=== PATIENT | male | born 1985 | race Hispanic/Latino ===

== ENCOUNTER 2017-11-21 12:30 | Day surgery (SDC) | payer SELFPAY ==
[~2017-11-21 12:30] MED LIST: Dexamethasone 20 MG/5 ML VIAL ONE; Ketorolac Tromethamine 30 MG/ML VIAL ONE; Lidocaine 1% PF 5 ML VIAL ONE; Ondansetron HCl/PF 4 MG/2 ML Vial ONE; Propofol 200 MG/20 ML VIAL ONE
[2017-11-21 12:50] LABS: #Basophils 0.1 thou/uL (0.0-0.2); #Eosinphils 0.2 thou/uL (0.0-0.7); #Lymphocytes 2.4 thou/uL (1.20-3.40); #Monocytes 1.1 thou/uL (0.11-0.59); #Neutrophils 11.6 thou/uL (1.40-6.50); %Basophils 0.6 % (0.0-1.0); %Eosinophils 1.5 % (0.0-10.0); %Lymphocytes 15.6 % (21.0-51.0); %Monocytes 6.8 % (0.0-10.0); %Neutrophils 75.6 % (42.0-75.0); Hemoglobin 17.2 g/dL (14.0-18.0); Mean Corpuscular Hemoglobin 29.4 pg (27.0-31.0); Mean Corpuscular Volume 91.9 fl (80.0-94.0); Mean Platelet Volume 7.8 fL (7.4-10.4); Platelet Count 369 thou/uL (130-400); RBC Distribution Width 12.5 % (11.5-14.5); Red Blood Cell (RBC) Count 5.84 mill/uL (4.70-6.10); White Blood Cell (WBC) Count 15.4 thou/uL (4.8-10.8)
[2017-11-21] MEDS ORDERED: Ondansetron HCl/PF 4 MG/2 ML Vial ONE (13:06)
[2017-11-21 13:13] LABS: ALT (SGPT) 40 U/L (8-55); AST (SGOT) 18 U/L (5-34); Albumin 4.1 g/dL (3.5-5.0); Alkaline Phosphatase 82 U/L (40-150); Anion Gap 15 mmol/L (10-20); BUN (Urea Nitrogen) 7 mg/dL (8.9-20.6); Bilirubin, Total 0.8 mg/dL (0.2-1.2); Calc. Creatinine Clearance 0 mL/min (70-130); Calcium 9.4 mg/dL (7.8-10.44); Carbon Dioxide 23 mmol/L (22-29); Chloride 100 mmol/L (98-107); Estimated GFR-MDRD Greater than 90; Globulin 3.6 g/dL (2.4-3.5); Glucose 155 mg/dL (70-105); Potassium 3.8 mmol/L (3.5-5.1); Protein, Total 7.7 g/dL (6.0-8.3); Sodium 134 mmol/L (136-145)
[2017-11-21 13:24] LABS: CK (CPK) 99 U/L (30-200); Lipase 6 U/L (8-78)
[2017-11-21 13:30] LABS: Troponin I Less than 0.010 ng/mL (< 0.028)
--- NOTE | 2017-11-21 13:41 | RAD ---
CHEST ONE VIEW: History: Chest pain. Comparison: None. FINDINGS: Portable upright chest. Normal cardiac silhouette. The lungs and pleural spaces are clear. No pneumot horax or osseous abnormalities. IMPRESSION: No acute cardiopulmonary process. POS: AVIVAH
[2017-11-21] MEDS ORDERED: Meropenem 1 GM in Sterile Water 20 ML SLOW IVP SCH (14:30)
[2017-11-21] MEDS ORDERED: Bupivacaine/Epinephrine 0.25% 30 ML VIAL ONE (14:54)
--- NOTE | 2017-11-21 15:07 | HP ---
DATE OF ADMISSION: 11/21/2017 HISTORY OF PRESENT ILLNESS: A 32-year-old obese young man presented to emergency department given a history of recurrent epigastric to right upper quadrant postprandial abdominal pain of one m onth duration. Pain has been unrelenting since 2 days ago following a late dinner consisting of taco s. Yesterday, the pain intensified to 9/10, associated with 2 episodes of emesis. Today, the pain i s 10/10. As a result, the patient presented to Emergency Department. Last meal was yesterday. The patient denies any fevers or chills. He denies any diarrhea. He reports abdominal bloating though d enies any flatulence. PAST MEDICAL HISTORY: He denies any previous medical problems. SURGICAL HISTORY: The patient denies any previous surgeries. SOCIAL HISTORY: He is single, employed as a regional dedicated truck driver. He smokes half a pack of cigarettes per d ay and done so for 10-12 years. Admits to occasional intake of ethanol in moderate amount. He smoke s marijuana occasionally. He denies any other illicit drug abuse. FAMILY HISTORY: Significant for diabetes mellitus and essential hypertension in both grandmothers. Maternal grandmother also has heart disease. His father has liver cancer. PREOPERATIVE MEDICATIONS: None. ALLERGIES: The patient denies any known drug allergies. REVIEW OF SYSTEMS: A 10 point review of systems essentially unremarkable except for as stated in pas t medical history and chief complaint. PHYSICAL EXAMINATION: GENERAL: This reveals a 32-year-old obese man who is otherwise coherent and interactive and appears stated age. The patient is alert and oriented x3, appears to be in moderate and acute distress secon zoila to right upper quadrant abdominal pain. VITAL SIGNS: Includes blood pressure 126/82, pulse 84, respiratory rate is 18, temperature 98.9 degr ees Fahrenheit, oxygen saturation 97% on room air. HEENT: Reveals normocephalic and atraumatic. He has no sclerae icterus present. HEART: Reveals regular rate and rhythm. No murmurs or gallops auscultated. LUNGS: Clear to auscultation bilaterally. Breathing regular and unlabored. ABDOMEN: Soft with right upper quadrant tenderness to palpation. He has a positive Chan sign. Li kimmy and spleen otherwise nonpalpable below costal margin. EXTREMITIES: Reveals 2+ radial and pedal pulses bilaterally. No ankle edema is present. NEUROLOGIC: Reveals no focal deficits present. PERTINENT LABORATORY FINDINGS: Today includes a CBC with 15,400 white blood cells, hemoglobin and he matocrit 17.2 and 53.7 respectively. Platelet count 269,000. Metabolic profile: Sodium 134, potass ium 3.8, chloride is 100, bicarbonate 23, BUN 7, creatinine 0.96, glucose 155. Total bilirubin 0.8, AST and ALT normal 18 and 40 respectively. Alkaline phosphatase is also normal at 82. Serum lipase is normal at 6. I have personally reviewed the abdominal ultrasound, which shows multiple intralumin al gallstones in a distended gallbladder. There is pericholecystic fluid present. Gallbladder wall is also thickened at 5.7 mm. Common bile duct size is dilated at 7.1 mm for this patient's age. IMPRESSION: Acute cholecystitis with cholelithiasis. PLAN: Laparoscopic cholecystectomy. Above findings and plan have been discussed with the patient wh o indicates understanding of the information given. I have advised him of the risks and benefits of the proposed surgery. Risks include, but not limited to bleeding, infection, injury to bile duct or surrounding structures. This information was provided to the patient in the presence of both his loulou lt parents. They all indicated understand information given. The patient has granted consent for is admission and surgical intervention.
[2017-11-21] MEDS ORDERED: Fentanyl 250 MCG/5 ML VIAL ONE ×2 (15:19→16:54)
[2017-11-21] MEDS ORDERED: HYDROmorphone 0.5 MG/0.5 ML SYRINGE ONE ×2 (15:19→15:38)
--- NOTE | 2017-11-21 15:35 | ULT ---
ULTRASOUND ABDOMEN LIMITED: (RIGHT UPPER QUADRANT) DATE: 11/21/2017 HISTORY: Post prandial right upper quadrant abdominal pain with nausea and emesis in a 32-year-old male. FINDINGS: A large amount of bowel gas, causing shadowing, obscuring the pancreas, much of the liver, and much o f the right kidney. The liver has diffusely heterogeneous echogenicity. Gallbladder wall thickness i s 6 mm and appears edematous. There is a small amount of adjacent pericholecystic fluid. In additio n to sludge, there are at least several gallstones, poorly visualized because of strong shadowing. U nable to determine the presence or absence of a sonographic Chan sign because the patient is medica casa. The common duct is 7 mm. No hydronephrosis of the right kidney. IMPRESSION: 1. Positive for cholelithiasis. 2. Findings suspicious for acute cholecystitis. 3. Diffusely heterogeneous echogenicity of the liver. This could represent hepatic steatosis, but o ther types of diffuse hepatocellular disease (including very extensive metastatic disease) can also h ave this appearance. BRANDON Toure POS: ANTONINA
[2017-11-21] MEDS ORDERED: Promethazine HCl 25 MG/ML VIAL IM PRN (17:49)
[2017-11-21] MEDS ORDERED: Ondansetron HCl/PF 4 MG/2 ML Vial IVP PRN (17:49)
[2017-11-21] MEDS ORDERED: HYDROmorphone 2 MG/ML VIAL SLOW IVP PRN (17:49)
[2017-11-21] MEDS ORDERED: Promethazine HCl 25 MG/ML VIAL SLOW IVP PRN (17:49)
[2017-11-21] MEDS ORDERED: Fentanyl 100 MCG/2 ML VIAL ONE (18:00)
[2017-11-21] MEDS ORDERED: traMADol HCl 50 MG TAB ONE (19:17)
--- NOTE | 2017-11-21 21:33 | OP ---
DATE OF PROCEDURE: 11/21/2017 PREOPERATIVE DIAGNOSIS: Acute cholecystitis with cholelithiasis. POSTOPERATIVE DIAGNOSIS: Acute cholecystitis with cholelithiasis. PROCEDURE PERFORMED: Laparoscopic cholecystectomy. SURGEON: Kiel Billy D.O. ANESTHESIA: General endotracheal. ESTIMATED BLOOD LOSS: 10 mL. FLUIDS GIVEN: 1400 mL crystalloids. SPONGE AND INSTRUMENT COUNT: Certified as correct x2. COMPLICATIONS: None apparent at the time of operation. INDICATIONS FOR PROCEDURE: A 32-year-old man presented with recurrent epigastric to right u pper quadrant abdominal pain, which failed to resolve at this time. Clinical and radiographic examin ation was consistent with acute cholecystitis with cholelithiasis for which [facility]. Findings are consistent with markedly distended and taut gallb ladder in the usual anatomic location, completely encased by omental adhesions. DESCRIPTION OF PROCEDURE: Informed consent obtained from the patient who was brought to the operatin g room and placed in supine position. Following general anesthesia, a Britt catheter was inserted an d placed bedside drain. The abdomen was then sterilely prepped and draped in usual fashion. The ski n below the umbilicus was infiltrated with 0.25% Marcaine with epinephrine. A small curvilinear infr aumbilical incision is made using an 11 scalpel. Umbilical stalk was grasped with Vinod's and eleva casa. Veress needle was inserted through the incision and placed in the peritoneal cavity through whi ch the abdomen was insufflated with 3 liters of CO2 gas. Intraabdominal pressure was noted at 2 mmHg . Following abdominal insufflation, Veress needle was removed and a 5-mm trocar introduced using the Visiport under laparoscopy. Laparoscopy confirmed proper placement of the port, no injuries to unde rlying structures. Additional laparoscopy reveals gallbladder in the usual anatomic location complet josephine encased by omental adhesions. Under laparoscopy, a 12-mm epigastric and two 5-mm right lateral s ubcostal ports were placed after the overlying skin was infiltrated with 0.25% Marcaine with epinephr ine and appropriate incisions made. The patient was then placed in the reverse Trendelenburg positio n, rotated to his left. I used a [place] dissector to bluntly take down omental adhesions to reveal the fundus of the gallbladder, which appeared to be infected. I attempted to grasp the [facility] with a Prestige grasper introduced through the right lateral subcostal port. The gallb ladder was markedly distended and taut, difficult to grasp. I decided therefore to decompress the ga llbladder to allow for ease of manipulation. Using an Endo suction catheter with cautery, cholecysto concepcion was made at the fundus of the gallbladder, evacuating excess black bile. The fundus of the gall bladder was then grasped with a Prestige grasper and elevated cephalad. Omental adhesions were taken down from the remainder of the gallbladder. A second Prestige grasper was introduced through the [facility] medial subcostal port, grasping the Carpenter's pouch, which was retracted laterally. Cystic duct was dissected free from surrounding structures at the triangle of Calot. The duct was divided betwee n clips, applying two clips proximally and one clip at the junction of the cystic duct and gallbladde r. The cystic artery was dissected free from surrounding structures and divided between clips in a s imilar fashion. Gallbladder surface removed from the liver bed using cautery with good hemostasis. Gallbladder was delivered off the abdominal cavity using an EndoCatch. Operative site was irrigated clear with saline solution, noting good hemostasis in place. All clips remain in place, no bile stai ns present. Finding no other pathology, laparoscopy was terminated. Fascia of the epigastric port w as closed using 0 Vicryl suture and Endo closure device under laparoscopy. Abdomen was desufflated. All ports and instruments removed and accounted for. Skin incisions were closed using 4-0 Monocryl suture in subcuticular fashion. Dermabond was applied over the incisions after closure. The patient tolerated the operation without any apparent complication and was returned to recovery room in [employer] condition.
--- NOTE | 2017-11-23 13:06 | EKG ---
Test Reason : Blood Pressure : / mmHG Vent. Rate : 080 BPM Atrial Rate : 080 BPM P-R Int : 140 ms QRS Dur : 092 ms QT Int : 370 ms P-R-T Axes : 013 -07 038 degrees QTc Int : 426 ms Normal sinus rhythm Normal ECG Confirmed by KADIE DIETZ, PALMIRA ([id number]), story editor TOYIN PUCKETT ([id number]) on 11/23/2017 1:05:31 PM Referred By: Confirmed By:PALMIRA ENGLE MD
== END 2017-11-21 19:40 | disposition home or self-care (01) ==
LOC: ERS 12:30 → SDC 14:14
PROVIDERS: ATTEND Surgery
PROC: 0FT44ZZ Resection of Gallbladder, Percutaneous Endoscopic Approach (ICD-10-PCS; principal; 2017-11-21)
DX: K80.10 Calculus of gallbladder with chronic cholecystitis without obstruction (principal); F17.210 Nicotine dependence, cigarettes, uncomplicated; E66.9 Obesity, unspecified; Z68.41 Body mass index [BMI] 40.0-44.9, adult
CPT/HCPCS: 36415; 71045; 76705; 80053; 82553; 83690; 84484; 85025; 88304; 93005; 96361; 96374; 96375; 96376; A4216; J1100; J1170; J1885; J2001; J2185; J2270; J2405; J2704; J3010

== ENCOUNTER 2020-07-13 14:05 | Emergency (ER) | payer SELFPAY ==
[2020-07-13 16:16] LABS: Bacteria/HPF None Seen HPF (None Seen); Bilirubin Negative (Negative); Blood, Urine 1+ (Negative); Clarity Clear (Clear); Glucose, Urine (Dipstick) Normal (Negative); Ketone, Urine Trace mg/dL (Negative); Leukocyte 500 Leu/uL (Negative); Mucous/LPF 2+ LPF (<2+); Nitrite Negative (Negative); Protein, Urine (Dipstick) Negative (Neg-Trace); RBC/HPF 0-3 HPF (0-3); Specific Gravity, Urine 1.008 (1.002-1.036); Squamous Epithelial 0-3 HPF (0-3); Urobilinogen Normal mg/dL (Less than 2); WBC/HPF 21-50 HPF (0-3); pH, Urine 5.5 (5.0-9.0)
[2020-07-13] MEDS ORDERED: Azithromycin 250 MG TAB ONE (16:37)
[2020-07-13] MEDS ORDERED: cefTRIAXone\\ROCEPHIN 250 MG VIAL ONE (16:37)
[2020-07-13] MEDS ORDERED: Lidocaine 1% PF 5 ML VIAL ONE (16:38)
[2020-07-14 19:30] LABS: Chlam.trachomatis by PCR,Urine Not Detected (NotDetected)
== END 2020-07-13 17:17 | disposition home or self-care (01) ==
LOC: ERS 14:05
DX: N34.2 Other urethritis (principal); F17.210 Nicotine dependence, cigarettes, uncomplicated
CPT/HCPCS: 81003; 81015; 87491; 87591; 96372; 99283; J0696